=== PATIENT | female | born 1970 ===

== ENCOUNTER 2016-05-19 16:50 | Observation (INO) | payer MEDICARE, BC ==
[2016-05-19 16:50] VITALS: BMI 33.4
[2016-05-19] MEDS ORDERED: Sodium Chloride 0.9% 1,000 ML IV STA (17:14)
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
[2016-05-19 19:15] LABS: URINE BILIRUBIN NEGATIVE (NEGATIVE); URINE BLOOD NEGATIVE (NEGATIVE); URINE GLUCOSE (UA) NEGATIVE (NEGATIVE); URINE KETONE NEGATIVE (NEGATIVE); URINE LEUKOCYTE ESTERASE MODERATE Leu/uL (NEGATIVE); URINE PROTEIN NEGATIVE mg/dL (<30 mg/dL); URINE UROBILINOGEN 0.2 E.U./dL (<1 E.U./dL)
[2016-05-19 19:29] LABS: URINE APPEARANCE CLOUDY (CLEAR); URINE COLOR YELLOW (YELLOW)
[2016-05-19 19:31] LABS: ADD MANUAL DIFF? NO
[2016-05-19 19:32] LABS: URINE RBC 0 - 2 /hpf (0-2); URINE WBC 20 - 25 /hpf (0-6)
[2016-05-19 19:33] LABS: URINE BACTERIA MOD (NEG)
[2016-05-19 19:36] LABS: BASO # 0.02 K/mm3 (0.0-2.0); BASO % 0.3 % (0.0-3.0); EOS % 0.5 % (1.5-5.0); GRAN # 3.97 (1.4-6.5); GRAN % 61.3 % (50.0-68.0); HEMATOCRIT 40.4 % (36.0-48.0); LYMPH # 1.9 (1.2-3.4); LYMPH % 29.7 % (22.0-35.0); MEAN CELL VOLUME 93.1 fL (80.0-105.0); MEAN CORPUSCULAR HEMOGLOBIN 31.3 pg (25.0-35.0); MEAN CORPUSCULAR HGB CONC 33.7 g/dl (31.0-37.0); MEAN PLATELET VOLUME 9.6 fl (7.0-11.0); MONO # 0.5 (0.1-0.6); MONO % 8.2 % (1.0-6.0); PLATELET COUNT 276 10^3/uL (120.0-450.0); RED CELL DISTRIBUTION WIDTH 13.5 % (11.5-14.5); WHITE BLOOD COUNT 6.5 10^3/ul (4.5-11.0)
[2016-05-19 19:46] LABS: ALB/GLOB RATIO 1.1 (1.1-1.8); ALKALINE PHOSPHATASE 47 U/L (38-133); ALT/SGPT 19 U/L (7-56); AST/SGOT 23 U/L (15-39); BILIRUBIN,TOTAL 0.4 mg/dL (0.2-1.3); BLOOD UREA NITROGEN 18 mg/dL (7-21); CARBON DIOXIDE 28 mmol/L (21-33); CHLORIDE 105 mmol/L (98-107); GFR AFRICAN-AMERICAN > 60; GLUCOSE,RANDOM 84 mg/dL (70-110); SODIUM 139 mmol/L (132-148); TOTAL PROTEIN 7.4 g/dL (5.8-8.3)
[2016-05-19 19:59] LABS: TROPONIN I < 0.01 ng/mL
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
[2016-05-19] MEDS ORDERED: Sodium Chloride 0.9% 1,000 ML IV SCH (23:15)
[2016-05-19] MEDS: Sodium Chloride 0.45% 1,000 ML IV SCH (23:34)
[2016-05-20] MEDS: TRIFLUOPERAZINE HCL 5 MG PO SCH ×2 (00:19→22:07)
[2016-05-20 06:25] LABS: ADD MANUAL DIFF? NO
[2016-05-20 06:32] LABS: BASO # 0.02 K/mm3 (0.0-2.0); BASO % 0.4 % (0.0-3.0); EOS % 0.5 % (1.5-5.0); GRAN # 3.29 (1.4-6.5); GRAN % 58.5 % (50.0-68.0); HEMATOCRIT 39.9 % (36.0-48.0); LYMPH # 1.9 (1.2-3.4); LYMPH % 33.3 % (22.0-35.0); MEAN CELL VOLUME 93.2 fL (80.0-105.0); MEAN CORPUSCULAR HEMOGLOBIN 30.6 pg (25.0-35.0); MEAN CORPUSCULAR HGB CONC 32.8 g/dl (31.0-37.0); MONO # 0.4 (0.1-0.6); MONO % 7.3 % (1.0-6.0); PLATELET COUNT 242 10^3/uL (120.0-450.0); WHITE BLOOD COUNT 5.6 10^3/ul (4.5-11.0)
[2016-05-20 06:45] LABS: BLOOD UREA NITROGEN 16 mg/dL (7-21); CALCIUM 8.6 mg/dL (8.4-10.5); CARBON DIOXIDE 24 mmol/L (21-33); CHLORIDE 108 mmol/L (98-107); CHOLESTEROL 165 mg/dL (130-200); GFR AFRICAN-AMERICAN > 60; GLUCOSE,RANDOM 94 mg/dL (70-110); POTASSIUM 4.3 mmol/L (3.6-5.0); SODIUM 139 mmol/L (132-148)
[2016-05-20 07:02] LABS: FREE T4 0.95 ng/dL (0.78-2.19); T4 6.6 ug/dL (5.5-11.0)
[2016-05-20 07:10] LABS: TROPONIN I < 0.01 ng/mL
[2016-05-20 07:15] LABS: THYROID STIMULATING HORMONE 3.02 mIU/mL (0.46-4.68)
--- NOTE | 2016-05-20 07:35 | CT ---
PROCEDURE: CT HEAD WITHOUT CONTRAST. HISTORY: headache COMPARISON: 04/23/2016 TECHNIQUE: Axial computed tomography images were obtained through the head/brain without intravenous contrast. Radiation dose: Total exam DLP = 726 mGy-cm. FINDINGS: HEMORRHAGE: No intracranial hemorrhage. BRAIN: No mass effect or edema. No atrophy or chronic microvascular ischemic changes. VENTRICLES: Unremarkable. No hydrocephalus. CALVARIUM: Unremarkable. PARANASAL SINUSES: Unremarkable as visualized. No significant inflammatory changes. MASTOID AIR CELLS: Unremarkable as visualized. No inflammatory changes. OTHER FINDINGS: None. IMPRESSION: Normal CT of the Head. No interval change
[2016-05-20] MEDS: Pantoprazole 40 mg EC Tab PO SCH (08:13)
--- NOTE | 2016-05-20 08:44 | RAD ---
HISTORY: near syncope COMPARISON: 09/08/2013 FINDINGS: LUNGS: No active pulmonary disease. PLEURA: No significant pleural effusion identified, no pneumothorax apparent. CARDIOVASCULAR: Normal. OSSEOUS STRUCTURES: No significant abnormalities. VISUALIZED UPPER ABDOMEN: Normal. OTHER FINDINGS: EKG leads in place IMPRESSION: No active disease.
--- NOTE | 2016-05-20 09:06 | CARD ---
APPROVED REPORT EKG Measurement Heart [id number] <Conclusion> Normal sinus rhythm Normal ECG
--- NOTE | 2016-05-20 09:52 | CON ---
DATE: 05/20/2016 HISTORY: The patient is a 45-year-old woman who presents with recurrent episodes of "feeling like I' m about the pass out." She denies dizziness, denies shortness of breath, denies loss of consciousness. The patient's past medical history is notable for lupus erythematosus. No previous cardiac history. No chest pain, no shortness of breath. The patient is on disability. SOCIAL HISTORY: Negative smoker. Negative chest pain, negative shortness of breath. A 14-point review of systems was reviewed. No cardiac symptomatology is noted. She denies a seizure disorder. PHYSICAL EXAMINATION: VITAL SIGNS: Stable. No orthostatic changes. Heart rate is in the 70s. NECK: Negative JVD. LUNGS: Without rales. HEART: Reveals S1, S2. EXTREMITIES: Without edema. The hemoglobin is 13.1. LABORATORIES: Troponins are negative x 2. EKG is unremarkable. IMPRESSION: 1. Sensation of near-syncope. 2. No evidence for hemodynamic cause of her syncope. 3. No orthostatic changes. 4. Lupus erythematosus. Given these findings, will obtain an echocardiogram. It is unlikely her symptoms are cardiac related . Paul Cedillo MD cc: [id number] TT: 05/20/2016 09:52:02 Confirmation # [id number] Dictation # [id number] taylor
[2016-05-20] MEDS: Enoxaparin 40 mg Syringe SC SCH (11:41)
[2016-05-20] MEDS: Sodium Chloride 0.45% 1,000 ML IV SCH ×2 (12:03→21:10)
[2016-05-20] MEDS: Apap-Butalbital-Caffeine 325-50-40mg Tab PO PRN ×2 (12:16→19:57)
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
--- NOTE | 2016-05-20 12:45 | US ---
HISTORY: Hx calcified nodule, r/o cause of pre-syncope TECHNIQUE: Sonographic evaluation of the thyroid gland. COMPARISON: 02/25/2009 FINDINGS: RIGHT LOBE: Measures 4.5 x 1.5 x 1.7 cm. Within the midpole a benign-appearing peripherally calcified nodule, 1.2 x 1.1 x 1.1 cm is noted and similar dating back to 2009. Otherwise, normal echotexture and f midpole right low. Nodules: Midpole for peripherally calcified nodule as above LEFT LOBE: Measures 3.8 x 1.2 x 1.5 cm. Normal echotexture and flow. Nodules: None ISTHMUS: Measures 0.3 cm. Normal echotexture and flow. Nodules: None OTHER FINDINGS: None . IMPRESSION: Right midpole peripherally calcified benign-appearing 1 to 1.2 cm nodule -grossly stable since 2009.
--- NOTE | 2016-05-20 13:54 | US ---
PROCEDURE: Bilateral carotid artery duplex ultrasound HISTORY: Carotid stenosis syncope. PHYSICIAN(S): Paul Patrick MD. TECHNIQUE: Duplex sonography and color-flow Doppler were used to evaluate the carotid bifurcations and limited segments of the vertebral arteries bilaterally. FINDINGS: There is mild smooth hypoechoic plaque noted at the carotid bifurcations bilaterally. The peak systolic velocity in the proximal right internal carotid artery is 87 cm/sec. This corresponds to a 0-19 percent proximal right ICA stenosis. Normal systolic velocities are noted in the proximal right external carotid artery. There is antegrade flow in the right vertebral artery. The peak systolic velocity in the proximal left internal carotid artery is 81 cm/sec. This corresponds to a 0-19 percent proximal left ICA stenosis. Normal systolic velocities are noted in the proximal left external carotid artery. There is antegrade flow in the left vertebral artery. IMPRESSION: 1. Bilateral 0-19% proximal ICA stenoses. 2. Antegrade flow in both vertebral arteries.
--- NOTE | 2016-05-20 15:44 | CP.PCM.PN ---
Subjective - Date & Time of Evaluation Date of Evaluation: 05/20/16 Time of Evaluation: 11:00 - Subjective Subjective: PGY-1 Medicine progress note Patient seen and examined at bedside. No acute distress. Nurse report no acute events overnight. Patient states that yesterday she felt lightheadedness, with left arm discomfort. She also reported nausea without emesis. This morning patient states she is feeling better. Overnight patient received Reglan and her nausea improved. She denies fever, chill, dizziness, lightheadedness, n/v/d/c. Patients states that she has a history for headaches and is on multiple medication. Objective - Vital Signs/Intake and Output Vital Signs (last 24 hours): Temp Pulse Resp BP Pulse Ox 98.3 F 78 18 125/76 100 05/20/16 11:52 05/20/16 14:00 05/20/16 11:52 05/20/16 11:52 05/20/16 06:00 Intake and Output: 05/20/16 05/20/16 06:59 18:59 Intake Total 600 480 Balance 600 480 - Medications Medications: Current Medications Acetaminophen/Butalbital/Caffeine (Fioricet) 1 tab PO Q4H PRN PRN Reason: Headache Last Admin: 05/20/16 12:16 Dose: 1 tab Amitriptyline HCl (Elavil) 50 mg PO [facility] Last Admin: 05/20/16 00:24 Dose: 50 mg Enoxaparin Sodium (Lovenox) 40 mg SC DAILY [facility] PRN Reason: Protocol Last Admin: 05/20/16 11:41 Dose: 40 mg Home Med (Home Med) 1 unit PO [facility] Last Admin: 05/20/16 00:19 Dose: Not Given Hydroxychloroquine Sulfate (Plaquenil) 200 mg PO DAILY [facility] Last Admin: 05/20/16 11:41 Dose: 200 mg Hydroxyzine HCl (Atarax) 50 mg PO [facility] Last Admin: 05/20/16 00:25 Dose: 50 mg Sodium Chloride (Sodium Chloride 0.45%) 1,000 mls @ 100 mls/hr IV .Q10H [facility] Last Admin: 05/20/16 12:03 Dose: 100 mls/hr Metoclopramide HCl (Reglan) 5 mg IVP TID PRN PRN Reason: Nausea/Vomiting Last Admin: 05/20/16 11:51 Dose: 5 mg Nitrofurantoin Macrocrystals (Macrobid) 100 mg PO Q12 [facility] Stop: 05/26/16 10:00 Last Admin: 05/20/16 11:41 Dose: 100 mg Pantoprazole Sodium (Protonix Ec Tab) 40 mg PO ACB [facility] Last Admin: 05/20/16 08:13 Dose: 40 mg Phenytoin Sodium (Dilantin) 300 mg PO HS [facility] Last Admin: 05/20/16 00:24 Dose: 300 mg Tramadol HCl (Ultram) 50 mg PO BID PRN PRN Reason: Pain, moderate (4-7) Last Admin: 05/20/16 14:24 Dose: 50 mg - Labs Labs: 05/20/16 05:20 05/20/16 05:20 - Constitutional Appears: Well, No Acute Distress - Head Exam Head Exam: ATRAUMATIC, NORMOCEPHALIC - Eye Exam Eye Exam: EOMI, Normal appearance, PERRL - ENT Exam ENT Exam: Mucous Membranes Moist - Respiratory Exam Respiratory Exam: Clear to Ausculation Bilateral, NORMAL BREATHING PATTERN. absent: Rhonchi, Wheezes, Respiratory Distress - Cardiovascular Exam Cardiovascular Exam: REGULAR RHYTHM. absent: Tachycardia, Murmur - GI/Abdominal Exam GI & Abdominal Exam: Soft, Normal Bowel Sounds. absent: Distended, Firm, Guarding, Tenderness - Extremities Exam Extremities Exam: Normal Inspection. absent: Pedal Edema - Neurological Exam Neurological Exam: Alert, Awake, Oriented x3 - Skin Skin Exam: Dry, Intact, Normal Color, Warm Assessment and Plan - Assessment and Plan (Free Text) Assessment: 45 years old female with a history of lupus, combined migraine/tension/ cluster SINGH, calcified thyroid nodule, Hx of recent fall 2 weeks ago with posterior head impact, presents today with near syncope, nausea with L arm discomfort. Plan: 1. lightheadedness, near syncope - onset s/p fall 2 weeks ago - possibly vasovagal due to decrease PO intake - orthostatic normal - cont 1/2NS@100 - Reglan for nausea - trops negative x2 - carotid u/s shows 19% stenosis - echocardiogram- read pending - cardio consult, Dr. cedillo - negative jaki-hallpike - neuro consult, Dr. Mccarty - BMP normal, A1C is 5.3 2. UTI - positive UA - urine cultures on for gram positive cocci - placed on nitrofurantoin 3. Retractable nausea - diet advanced to regular - Failed zofran - Reglan PRN - IVF 4. L arm discomfort- resolved - along radial nerve distribution with numbness with Hx fall - Likely temporary peripheral nerve irritation from muscle tension due to brief anxiety - cervical spine, Lumbar spine and left elbow x-ray on 04/23/16, showed No fracture - C2 chronic problem requiring spinal injection from pain management - cardio consulted, Dr. Cedillo 5. Hx calcified thyroid nodule - TSH, T4 WNL - Thyroid US showed no change in calcified nodule 6. Hx Lupus - continue Hydroxychloroquine Sulfate 200 mg PO daily - lipid panel is WNL 7. Hx combined migraine/tension/cluster SINGH - continue Elavil 50 mg PO HS, dilantin 300 mg PO HS, Stelazine 5 mg PO HS, and Hydroxyzine 50 mg HS all for headache - Neuro following 8. Hx of chronic lower back pain - continue Ultram 50 mg PO BID PRN 9. Hx GERD - continue Dexilant 60 mg daily 10. Prophylaxis - SCD, lovenox, home dexilant
--- NOTE | 2016-05-20 16:38 | CARD ---
APPROVED REPORT EXAM: Two-dimensional and M-mode echocardiogram with Doppler and color Doppler. INDICATION NEAR SYNCOPE 2D DIMENSIONS Left Atrium (2D)3.7 (1.6-4.0cm)IVSd0.9 (0.7-1.1cm) LVDd4.0 (3.9-5.9cm)PWd1.0 (0.7-1.1cm) LVDs2.9 (2.5-4.0cm)FS (%) 28.5 % LVEF (%)55.6 (>50%) M-Mode DIMENSIONS Aortic Root2.90 (2.2-3.7cm)Aortic Cusp Exc.1.80 (1.5-2.0cm) Aortic Valve AoV Peak Achlgqwy859.0cm/Rony Peak GR.8mmHg Mitral Valve MV E Baxuageq36.1cm/sMV A Wvmrhoqi48.6cm/sE/A ratio0.9 TDI Lateral E' Peak V10.90cm/sMedial E' Peak V11.60cm/sE/Lateral E'5.8 E/Medial E'5.4 Pulmonary Valve PV Peak Kqfdfyve35.0cm/sPV Peak Grad.2mmHg Tricuspid Valve TR Peak Fzabybkj660nc/sRAP [id number] Peak Gr.27mmHg [id number] LEFT VENTRICLE The left ventricle is normal size. There is normal left ventricular wall thickness. The left ventricular function is normal. The left ventricular ejection fraction is within the normal range. There is normal LV segmental wall motion. Transmitral Doppler flow pattern is Grade I-abnormal relaxation pattern. RIGHT VENTRICLE The right ventricle is normal size. There is normal right ventricular wall thickness. The right ventricular systolic function is normal. ATRIA The left atrium size is normal. The right atrium size is normal. AORTIC VALVE The aortic valve is normal in structure. No aortic regurgitation is present. MITRAL VALVE The mitral valve is normal in structure. There is no mitral valve regurgitation noted. TRICUSPID VALVE There is mild pulmonary hypertension. GREAT VESSELS The aortic root is normal in size. PERICARDIAL EFFUSION There is no pericardial effusion. <Conclusion> The left ventricle is normal size. There is normal left ventricular wall thickness. The left ventricular function is normal. The left ventricular ejection fraction is within the normal range. There is normal LV segmental wall motion. Transmitral Doppler flow pattern is Grade I-abnormal relaxation pattern. There is mild pulmonary hypertension.
--- NOTE | 2016-05-20 21:02 | CP.PCM.PN ---
Subjective - Date & Time of Evaluation Date of Evaluation: 05/20/16 Time of Evaluation: 20:59 - Subjective Subjective: Night call: Headache Pt developed SINGH after carotid u/s. SINGH is moderate, R > L parietal area. improves after vomiting x 1. denies vision change. denies any focal neural deficit. VSS Pt has a hx of chronic headache x 30 years managed by neurologist. On schedule Elavil 50 mg PO HS, Phenytoin Sodium Extended [Dilantin] 300 mg PO HS, Trifluoperazine HCl [Stelazine] 5 mg PO HS, and Hydroxyzine 50 mg HS all for headache, Rx by neurologist. Objective - Vital Signs/Intake and Output Vital Signs (last 24 hours): Temp Pulse Resp BP Pulse Ox 98.8 F 72 19 100/68 100 05/20/16 18:00 05/20/16 18:00 05/20/16 18:00 05/20/16 18:00 05/20/16 06:00 Intake and Output: 05/20/16 05/21/16 18:59 06:59 Intake Total 480 Balance 480 - Medications Medications: Current Medications Acetaminophen/Butalbital/Caffeine (Fioricet) 1 tab PO Q4H PRN PRN Reason: Headache Last Admin: 05/20/16 19:57 Dose: 1 tab Amitriptyline HCl (Elavil) 50 mg PO HS [facility] Last Admin: 05/20/16 00:24 Dose: 50 mg Enoxaparin Sodium (Lovenox) 40 mg SC DAILY [facility] PRN Reason: Protocol Last Admin: 05/20/16 11:41 Dose: 40 mg Home Med (Home Med) 1 unit PO HS [facility] Last Admin: 05/20/16 00:19 Dose: Not Given Hydroxychloroquine Sulfate (Plaquenil) 200 mg PO DAILY [facility] Last Admin: 05/20/16 11:41 Dose: 200 mg Hydroxyzine HCl (Atarax) 50 mg PO HS [facility] Last Admin: 05/20/16 00:25 Dose: 50 mg Sodium Chloride (Sodium Chloride 0.45%) 1,000 mls @ 100 mls/hr IV .Q10H [facility] Last Admin: 05/20/16 12:03 Dose: 100 mls/hr Metoclopramide HCl (Reglan) 5 mg IVP TID PRN PRN Reason: Nausea/Vomiting Last Admin: 05/20/16 17:58 Dose: 5 mg Nitrofurantoin Macrocrystals (Macrobid) 100 mg PO Q12 [facility] Stop: 05/26/16 10:00 Last Admin: 05/20/16 11:41 Dose: 100 mg Pantoprazole Sodium (Protonix Ec Tab) 40 mg PO ACB [facility] Last Admin: 05/20/16 08:13 Dose: 40 mg Phenytoin Sodium (Dilantin) 300 mg PO HS [facility] Last Admin: 05/20/16 00:24 Dose: 300 mg Tramadol HCl (Ultram) 50 mg PO BID PRN PRN Reason: Pain, moderate (4-7) Last Admin: 05/20/16 14:24 Dose: 50 mg - Labs Labs: 05/20/16 05:20 05/20/16 05:20 - Constitutional Appears: No Acute Distress - Head Exam Head Exam: ATRAUMATIC, NORMOCEPHALIC - Eye Exam Eye Exam: EOMI, Normal appearance, PERRL Pupil Exam: PERRL - ENT Exam ENT Exam: Mucous Membranes Moist, Normal Exam - Neck Exam Neck Exam: Normal Inspection, Tenderness (base of neck, b/l shoulder, chronic). absent: Meningismus - Respiratory Exam Respiratory Exam: Clear to Ausculation Bilateral, NORMAL BREATHING PATTERN - Neurological Exam Neurological Exam: Alert, Awake, CN II-XII Intact, Oriented x3. absent: Motor Sensory Deficit - Psychiatric Exam Psychiatric exam: Normal Mood - Skin Skin Exam: Dry, Warm Assessment and Plan - Assessment and Plan (Free Text) Plan: Chronic Headache, aggravated after carotid u/s, most likely tension in nature - 10pm Elavil 50 mg PO HS, Phenytoin Sodium Extended [Dilantin] 300 mg PO HS, Trifluoperazine HCl [Stelazine] 5 mg PO HS, and Hydroxyzine 50 mg HS all for headache - s/p reglan and fioricet x 1 - Hot +/- cold compress for tight muscles around neck. <20 mins per session. - Dim light. - If one sided SINGH with eye pain, 1L NC - No focal neural deficit
[2016-05-21] MEDS: Sodium Chloride 0.45% 1,000 ML IV SCH (05:46)
[2016-05-21 06:51] LABS: ADD MANUAL DIFF? NO
[2016-05-21 07:09] LABS: BASO # 0.01 K/mm3 (0.0-2.0); BASO % 0.2 % (0.0-3.0); EOS # 0.1 (0.0-0.7); EOS % 1.1 % (1.5-5.0); GRAN # 2.55 (1.4-6.5); GRAN % 54.4 % (50.0-68.0); HEMATOCRIT 39.3 % (36.0-48.0); LYMPH # 1.7 (1.2-3.4); LYMPH % 36.2 % (22.0-35.0); MEAN CELL VOLUME 93.1 fL (80.0-105.0); MEAN CORPUSCULAR HEMOGLOBIN 30.6 pg (25.0-35.0); MEAN CORPUSCULAR HGB CONC 32.8 g/dl (31.0-37.0); MEAN PLATELET VOLUME 9.4 fl (7.0-11.0); MONO # 0.4 (0.1-0.6); MONO % 8.1 % (1.0-6.0); PLATELET COUNT 252 10^3/uL (120.0-450.0); RED CELL DISTRIBUTION WIDTH 13.5 % (11.5-14.5); WHITE BLOOD COUNT 4.7 10^3/ul (4.5-11.0)
[2016-05-21 07:19] LABS: BLOOD UREA NITROGEN 9 mg/dL (7-21); CALCIUM 8.9 mg/dL (8.4-10.5); CARBON DIOXIDE 27 mmol/L (21-33); CHLORIDE 106 mmol/L (98-107); GFR AFRICAN-AMERICAN > 60; GLUCOSE,RANDOM 88 mg/dL (70-110); POTASSIUM 3.9 mmol/L (3.6-5.0); SODIUM 139 mmol/L (132-148)
[2016-05-21] MEDS: Pantoprazole 40 mg EC Tab PO SCH (08:03)
[2016-05-21] MEDS ORDERED: Valproate 500 MG in Sodium Chloride 0.9% 100 ML IVPB ONE (08:26)
[2016-05-21] MEDS ORDERED: methylPREDNISolone 500 MG in Sodium Chloride 0.9% 100 ML IVPB ONE (08:30)
[2016-05-21] MEDS ORDERED: DiphenhydrAMINE 50 mg/ml Inj IVP ONE (08:30)
[2016-05-21] MEDS: Enoxaparin 40 mg Syringe SC SCH (09:25)
--- NOTE | 2016-05-21 11:51 | PN ---
DATE: 05/21/2016 The patient is without symptoms. PHYSICAL EXAMINATION: VITAL SIGNS: Blood pressure 102/69, heart rate is in the 70s. NECK: Negative JVD. LUNGS: Without rales. HEART: Revealed S1, S2. EXTREMITIES: Without edema. LABORATORIES: Reveal troponins that are negative x 2. The hemoglobin is 12.6. Echocardiogram is un remarkable. EKG is unremarkable. eyeglass lens cutter is unremarkable. PLAN: Given these findings, there is no cardiac basis for her "near syncopal episode." No further cardiac workup is indicated at this time. We will discontinue telemetry today. Paul Cedillo MD cc: [id number] TT: 05/21/2016 11:50:37 Confirmation # [id number] Dictation # [id number]
--- NOTE | 2016-05-21 13:18 | CP.PCM.DIS ---
Provider - Provider Date of Admission: 05/19/16 21:02 Attending physician: Camilo Ivey MD Primary care physician: Dominga Pandey MD Time Spent in preparation of Discharge (in minutes): 45 Hospital Course - Lab Results Lab Results: Most Recent Lab Values WBC 4.7 10^3/ul (4.5-11.0) 05/21/16 06:30 RBC 4.22 10^6/uL (3.5-6.1) 05/21/16 06:30 Hgb 12.9 gm/dL (12.0-16.0) 05/21/16 06:30 Hct 39.3 % (36.0-48.0) 05/21/16 06:30 MCV 93.1 fL (80.0-105.0) 05/21/16 06:30 MCH 30.6 pg (25.0-35.0) 05/21/16 06:30 MCHC 32.8 g/dl (31.0-37.0) 05/21/16 06:30 RDW 13.5 % (11.5-14.5) 05/21/16 06:30 Plt Count 252 10^3/uL (120.0-450.0) 05/21/16 06:30 MPV 9.4 fl (7.0-11.0) 05/21/16 06:30 Gran % 54.4 % (50.0-68.0) 05/21/16 06:30 Lymph % (Auto) 36.2 % (22.0-35.0) H 05/21/16 06:30 Valencia % (Auto) 8.1 % (1.0-6.0) H 05/21/16 06:30 Eos % (Auto) 1.1 % (1.5-5.0) L 05/21/16 06:30 Baso % (Auto) 0.2 % (0.0-3.0) 05/21/16 06:30 Gran # 2.55 (1.4-6.5) 05/21/16 06:30 Lymph # 1.7 (1.2-3.4) 05/21/16 06:30 Valencia # 0.4 (0.1-0.6) 05/21/16 06:30 Eos # 0.1 (0.0-0.7) 05/21/16 06:30 Baso # 0.01 K/mm3 (0.0-2.0) 05/21/16 06:30 Sodium 139 mmol/L (132-148) 05/21/16 06:30 Potassium 3.9 mmol/L (3.6-5.0) 05/21/16 06:30 Chloride 106 mmol/L (98-107) 05/21/16 06:30 Carbon Dioxide 27 mmol/L (21-33) 05/21/16 06:30 Anion Gap 10 (10-20) 05/21/16 06:30 BUN 9 mg/dL (7-21) 05/21/16 06:30 Creatinine 0.7 mg/dL (0.5-1.4) 05/21/16 06:30 Est GFR ( Amer) > 60 05/21/16 06:30 Est GFR (Non-Af Amer) > 60 05/21/16 06:30 Random Glucose 88 mg/dL (70-110) 05/21/16 06:30 Hemoglobin A1c 5.3 % (4.2-6.5) 05/20/16 05:20 Calcium 8.9 mg/dL (8.4-10.5) 05/21/16 06:30 Total Bilirubin 0.4 mg/dL (0.2-1.3) 05/19/16 19:17 AST 23 U/L (15-39) 05/19/16 19:17 ALT 19 U/L (7-56) 05/19/16 19:17 Alkaline Phosphatase 47 U/L (38-133) 05/19/16 19:17 Lactate Dehydrogenase 580 U/L (333-699) 05/20/16 05:20 Total Creatine Kinase 25 U/L (35-230) L 05/20/16 05:20 Troponin I < 0.01 ng/mL 05/20/16 05:20 Total Protein 7.4 g/dL (5.8-8.3) 05/19/16 19:17 Albumin 3.9 g/dL (3.0-4.8) 05/19/16 19:17 Globulin 3.5 gm/dL 05/19/16 19:17 Albumin/Globulin Ratio 1.1 (1.1-1.8) 05/19/16 19:17 Triglycerides 44 mg/dL (35-160) 05/20/16 05:20 Cholesterol 165 mg/dL (130-200) 05/20/16 05:20 LDL Cholesterol Direct 92 mg/dL (0-129) 05/20/16 05:20 HDL Cholesterol 58 mg/dL (29-60) 05/20/16 05:20 Free T4 0.95 ng/dL (0.78-2.19) 05/20/16 05:20 Thyroxine (T4) 6.6 ug/dL (5.5-11.0) 05/20/16 05:20 TSH 3rd Generation 3.02 mIU/mL (0.46-4.68) 05/20/16 05:20 Urine Color Yellow (YELLOW) 05/19/16 18:57 Urine Appearance Cloudy (CLEAR) 05/19/16 18:57 Urine pH 7.0 (4.7-8.0) 05/19/16 18:57 Ur Specific Hamilton 1.020 (1.005-1.035) 05/19/16 18:57 Urine Protein Negative mg/dL (<30 mg/dL) 05/19/16 18:57 Urine Glucose (UA) Negative mg/dL (NEGATIVE) 05/19/16 18:57 Urine Ketones Negative mg/dL (NEGATIVE) 05/19/16 18:57 Urine Blood Negative (NEGATIVE) 05/19/16 18:57 Urine Nitrate Negative (NEGATIVE) 05/19/16 18:57 Urine Bilirubin Negative (NEGATIVE) 05/19/16 18:57 Urine Urobilinogen 0.2 E.U./dL (<1 E.U./dL) 05/19/16 18:57 Ur Leukocyte Esterase Moderate Ashwini/uL (NEGATIVE) H 05/19/16 18:57 Urine RBC 0 - 2 /hpf (0-2) 05/19/16 18:57 Urine WBC 20 - 25 /hpf (0-6) 05/19/16 18:57 Ur Epithelial Cells 3 - 4 /hpf (0-5) 05/19/16 18:57 Urine Bacteria Mod (NEG) 05/19/16 18:57 Urine HCG, Qual Negative (NEGATIVE) 05/19/16 18:57 Phenytoin < 3 ug/mL (10-20) L 05/19/16 19:17 Discharge Exam - Head Exam Head Exam: ATRAUMATIC, NORMOCEPHALIC - Eye Exam Eye Exam: EOMI, Normal appearance - ENT Exam ENT Exam: Mucous Membranes Moist - Respiratory Exam Respiratory Exam: Clear to PA & Lateral, NORMAL BREATHING PATTERN, UNREMARKABLE. absent: Decreased Breath Sounds, Wheezes, Respiratory Distress - Cardiovascular Exam Cardiovascular Exam: REGULAR RHYTHM. absent: Tachycardia, Diastolic murmur, Systolic Murmur - GI/Abdominal Exam GI & Abdominal Exam: Normal Bowel Sounds, Soft, Unremarkable. absent: Distended , Firm, Guarding, Tenderness - Extremities Exam Extremities exam: normal inspection - Neurological Exam Neurological exam: Alert, Oriented x3 - Skin Skin Exam: Dry, Intact, Normal Color, Warm Discharge Plan - Discharge Medications Prescriptions: Nitrofurantoin Macrocrystals [Macrobid] 100 mg PO Q12 #14 cap Metoclopramide [Reglan] 5 mg PO DAILY #5 tab - Follow Up Plan Condition: GOOD Disposition: HOME/ ROUTINE Instructions: Syncope (DC) Additional Instructions: Discharge instructions: - follow up with primary care physician, Dr. Ivey in 5 days. - follow up with Dr. Mccarty in 1-2 weeks. - if new symptoms occur call PMD or go to nearest emergency room New medication: macrobid 100mg q12 x 7 days for urinary tract infection Reglan 5mg resume all home medications discharge diagnose: near syncope UTI Referrals: Dominga Pandey MD [Primary Care Provider] - Camilo Ivey MD [Staff Provider] - Luis Mccarty MD [Staff Provider] -
[2016-05-21 13:40] VITALS: BP 106/69; PULSE 79; RESP 21; TEMP 97.9; O2SAT 99
== END 2016-05-21 14:13 | disposition home or self-care (01) ==
LOC: ED 16:50 → ERH 21:02 → 2RNO 05-20 00:10
PROVIDERS: ADMIT Internal Medicine; ATTEND Internal Medicine
DX: R55 Syncope and collapse (principal); R51 Headache; R42 Dizziness and giddiness; M79.602 Pain in left arm; M32.9 Systemic lupus erythematosus, unspecified; G43.909 Migraine, unspecified, not intractable, without status migrainosus; Z86.61 Personal history of infections of the central nervous system; K21.9 Gastro-esophageal reflux disease without esophagitis; F32.9 Major depressive disorder, single episode, unspecified; M06.9 Rheumatoid arthritis, unspecified; N18.9 Chronic kidney disease, unspecified; Z79.899 Other long term (current) drug therapy; Z91.81 History of falling
CPT/HCPCS: 36415; 70450; 71010; 76536; 80048; 80053; 80061; 80185; 81001; 82550; 83036; 83615; 84439; 84443; 84484; 84703; 85025; 87086; 87181; 93005; 93306; 93880; 96360; 96374; 97116; 97161; 99285; G0378; G8978; G8979; G8980; J1200; J1650; J2405; J2765; J2930; J7030; J7040

== ENCOUNTER 2016-12-17 15:00 | Emergency (ER) | payer MEDICARE, BC ==
[2016-12-17 15:01] VITALS: BMI 33.4
--- NOTE | 2016-12-17 16:06 | ED PDOC ---
Arrival/HPI - General Chief Complaint: Dental Pain Time Seen by Provider: 12/17/16 15:08 Historian: Patient - History of Present Illness Narrative History of Present Illness (Text): 12/17/16 15:56 This 46 yo female with pmh migraines, lupus, presents to this ED c/o right anterior upper tooth pain x 2 days. Patient stated she was evaluated by her dentist this morning, who examined her and ordered x-rays. Patient showed me a note from her dentist who stated no dental disease was found. Patient stated pain radiates to her right face and forehead area. Patient denies ear pain, sob, cp, sore throat, recent travel, sick contact, dizziness, or abnormal gait. Denies SINGH. Patient noted she has been taking medication for Lupus. Patient stated patient called her [employer] yesterday, who recommended her Levaquin 750 mg. She stated she took ABX yesterday and today, and that she has enough ABX for over 10 days. Time/Duration: Other (2 days) Quality: Aching Context: Home Past Medical History - Provider Review Nursing Documentation Reviewed: Yes - Infectious Disease Hx of Infectious Diseases: None - Tetanus Immunization Tetanus Immunization: Unknown - Past Medical History Past Medical History: No Previous - Cardiac Hx Cardiac Disorders: No - Pulmonary Hx Respiratory Disorders: No - Neurological Hx Neurological Disorder: Yes Hx Migraine: Yes - HEENT Hx HEENT Disorder: No (WEARS RX GLASSES) - Renal Hx Renal Disorder: Yes Hx Kidney Stones: Yes - Endocrine/Metabolic Hx Endocrine Disorders: Yes Hx Systemic Lupus Erythematosus: Yes - Hematological/Oncological Hx Blood Disorders: No Hx Blood Transfusions: No Hx Blood Transfusion Reaction: No - Integumentary Hx Dermatological Disorder: No - Musculoskeletal/Rheumatological Hx Arthritis: No Hx Rheumatoid Arthritis: Yes - Gastrointestinal Hx Gastrointestinal Disorders: Yes Hx Gastroesophageal Reflux: Yes - Genitourinary/Gynecological Hx Genitourinary Disorders: No - Psychiatric Hx Psychophysiologic Disorder: Yes Hx Anxiety: Yes Hx Depression: Yes Hx Emotional Abuse: No Hx Physical Abuse: No Hx Substance Use: No - Past Surgical History Past Surgical History: No Previous - Surgical History Hx Tonsillectomy: Yes Other/Comment: left foot - Anesthesia Hx Anesthesia Reactions: No Hx Malignant Hyperthermia: No - Suicidal Assessment Feels Threatened In Home Enviroment: No Family/Social History - Physician Review Nursing Documentation Reviewed: Yes Family/Social History: Other (non contributory) Smoking Status: Never Smoked Hx Alcohol Use: No Hx Substance Use: No Hx Substance Use Treatment: No Allergies/Home Meds Allergies/Adverse Reactions: Allergies acetaminophen [From Percocet] Allergy (Verified 12/17/16 15:34) VOMITING hydromorphone Allergy (Verified 05/19/16 16:59) VOMITING low bp oxycodone [From Percocet] Allergy (Verified 12/17/16 15:34) VOMITING Penicillins Allergy (Verified 05/19/16 16:59) RASH shellfish derived Allergy (Verified 05/19/16 16:59) ANAPHYLAXIS TYLENOL 3 Allergy (Mild, Uncoded 05/19/16 16:59) NAUSEA low bp Home Medications: Home Meds Medication Instructions Recorded Confirmed Elavil 50 mg PO HS 11/16/11 12/17/16 Dexlansoprazole [Dexilant] 60 mg PO DAILY 05/19/16 12/17/16 Dexlansoprazole [Dexilant] 60 mg PO DAILY 12/17/16 12/17/16 Gabapentin [Neurontin] 400 mg PO HS 12/17/16 12/17/16 Hydroxychloroquine Sulfate 200 mg PO DAILY 12/17/16 12/17/16 [Plaquenil] Review of Systems - Review of Systems Constitutional: Normal. absent: Fatigue, Weight Change, Fevers, Night Sweats Eyes: Normal. absent: Vision Changes, Photophobia, Eye Pain ENT: Other (see HPI). absent: TMJ Pain, Sore Throat, Rhinorrhea, Sinus Congestion Respiratory: Normal. absent: SOB, Cough, Sputum, Wheezing Cardiovascular: Normal. absent: Chest Pain, Palpitations Gastrointestinal: Normal. absent: Abdominal Pain, Nausea, Vomiting Genitourinary Female: Normal. absent: Dysuria, Frequency, Hematuria Musculoskeletal: Normal. absent: Back Pain, Neck Pain Skin: Normal. absent: Rash Neurological: Normal. absent: Headache, Dizziness, Focal Weakness, Gait Changes , Speech Changes, Facial Droop, Disequilibrium, Seizure Endocrine: Normal Hemo/Lymphatic: Normal Psychiatric: Normal. absent: Anxiety, Depression, Suicidal Ideation Physical Exam Vital Signs Temp Pulse Resp BP Pulse Ox 12/17/16 15:31 99.8 F H 98 H 18 126/81 100 Temperature: Afebrile Blood Pressure: Normal Pulse: Regular Respiratory Rate: Normal Appearance: Positive for: Well-Appearing, Non-Toxic, Comfortable Pain Distress: None Mental Status: Positive for: Alert and Oriented X 3 - Systems Exam Head: Present: Atraumatic, Normocephalic, Other (mild tenderness on right forehead, and right maxillary area. No facial swelling, erythema, or skin lesion) Pupils: Present: PERRL Extroacular Muscles: Present: EOMI. No: Entrapment Conjunctiva: Present: Normal. No: Injected Ears: Present: Normal, NORMAL TM, Normal Canal. No: Erythema, TM Bulging, Fluid , TM Perf Mouth: Present: Moist Mucous Membranes, Normal Lips, Normal Tounge, Normal Teeth. No: Drooling, Trismus Pharnyx: Present: Normal. No: ERYTHEMA, EXUDATE, TONSILS ENLARGED Nose (External): Present: Atraumatic Nose (Internal): Present: Normal Inspection Neck: Present: Normal Range of Motion, Lymphadenopathy (patient has a past history of enlarged righ cervical lymph node, which has been worked out in the past.). No: Meningeal Signs, MIDLINE TENDERNESS, Paraspinal Tenderness Respiratory/Chest: Present: Clear to Auscultation Back: Present: Normal Inspection Upper Extremity: Present: Normal Inspection, Normal ROM Lower Extremity: Present: Normal Inspection, Normal ROM Neurological: Present: GCS=15, CN II-XII Intact, Speech Normal, Motor Func Grossly Intact, Normal Sensory Function, Normal Cerebellar Funct, Gait Normal, Memory Normal Skin: Present: Warm, Dry, Normal Color. No: Rashes Psychiatric: Present: Alert, Oriented x 3, Normal Insight, Normal Concentration Medical Decision Making ED Course and Treatment: 12/17/16 19:11 On reevaluation the patient feels better and is in no acute distress. I have discussed the results and plan with the patient, who expresses understanding. Patient given the opportunity to ask question, all questions were answered and there is agreement with the plan to discharge the patient home with prescription for Macrobid. Patient was recommended to continue with Levaquin as instructed by her doctor. Patient is stable for discharge. Patient was instructed to follow up with physician/clinic in 1-2 days or return if symptoms persist/worsen or new concerning symptoms arise. Patient refused Naproxen prescription since she has Naproxen and Percocet at home. Re-evaluation Time: 19:13 Reassessment Condition: Re-examined, Improved - Lab Interpretations Lab Results: 12/17/16 16:50 12/17/16 16:50 Lab Results 12/17/16 16:50: Sodium 143, Potassium 3.8, Chloride 106, Carbon Dioxide 24, Anion Gap 17, BUN 15, Creatinine 0.8, Est GFR ( Amer) > 60, Est GFR (Non- Af Amer) > 60, Random Glucose 88, Calcium 9.7, Total Bilirubin 0.6, AST 32, ALT 34, Alkaline Phosphatase 67, Total Protein 8.0, Albumin 4.6, Globulin 3.4, Albumin/Globulin Ratio 1.4 12/17/16 16:50: WBC 7.3 D, RBC 4.62, Hgb 13.8, Hct 41.9, MCV 90.7, MCH 29.9, MCHC 32.9, RDW 13.1, Plt Count 332, MPV 10.0, Gran % 74.0 H, Lymph % (Auto) 18.6 L, [place] % (Auto) 6.5 H, Eos % (Auto) 0.8 L, Baso % (Auto) 0.1, Gran # 5.38 , Lymph # 1.4, [place] # 0.5, Eos # 0.1, Baso # 0.01, ESR 11 12/17/16 16:36: Urine Color Yellow, Urine Appearance Sl cloudy, Urine pH 6.0, Ur Specific [place] 1.025, Urine Protein Negative, Urine Glucose (UA) Negative, Urine Ketones Negative, Urine Blood Negative, Urine Nitrate Negative, Urine Bilirubin Negative, Urine Urobilinogen 0.2, Ur Leukocyte Esterase Trace H, Urine RBC 0 - 2, Urine WBC 2 - 5, Ur Epithelial Cells 1 - 3, Urine Bacteria Few , Urine HCG, Qual Negative I have reviewed the lab results: Yes Interpretation: No clinic. lab abnormalty (except for subtle UTI) - RAD Interpretation Narrative RAD Interpretations (Text): 12/17/16 18:55 Accession No. 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 Coronal and sagittal reformats were generated. Radiation dose: Total exam DLP = 2081.33 mGy-cm. This CT exam was performed using one or more of the following dose reduction techniques: Automated exposure control, adjustment of the mA and/or kV according to patient size, and/or use of iterative reconstruction technique. FINDINGS: FRONTAL SINUSES: Clear. ETHMOID SINUSES: Clear. SPHENOID SINUSES: Clear. MAXILLARY SINUSES: There is mild mucosal thickening seen at the mid and lower portion of the right maxillary sinus without evidence of air-fluid level. The left maxillary sinus is clear. SINUS DRAINAGE: Osteomeatal complexes, frontal recesses and sphenoethmoid recesses clear. NASAL SEPTUM: No significant deviation. No destructive lesion. MASS: None. SKULL BASE: Unremarkable. TEMPORAL BONES: Middle ears and mastoid grossly unremarkable. OTHER FINDINGS: None. IMPRESSION: Mild mucosal thickening at the inferior aspect of the right maxillary sinus without evidence of air-fluid level. Otherwise the sinuses are clear. Radiology Orders: 12/17/16 16:18 SINUSES W/O CONTRAST [CT] Stat - Medication Orders Current Medication Orders: Discontinued Medications Sodium Chloride (Sodium Chloride 0.9%) 1,000 mls @ 999 mls/hr IV .Q1H1M STA Stop: 12/17/16 17:19 Last Admin: 12/17/16 16:59 Dose: 999 mls/hr eMAR Start Stop Document 12/17/16 16:59 EQ (Rec: 12/17/16 16:59 EQ [facility] [id number] Intravenous Solution Start Date 12/17/16 Start Time 16:59 Ketorolac Tromethamine (Toradol) 30 mg IVP STAT STA Stop: 12/17/16 16:18 Last Admin: 12/17/16 16:59 Dose: 30 mg MAR Pain Assessment Document 12/17/16 16:59 EQ (Rec: 12/17/16 16:59 EQ [facility] [id number] Pain Reassessment Is this a pain reassessment? No Sleep Is patient sleeping during reassessment? No Presence of Pain Presence of Pain Yes IVP Administration Document 12/17/16 16:59 EQ (Rec: 12/17/16 16:59 EQ [facility] [id number] Charges for Administration # of IVP Administrations 1 Disposition/Present on Arrival - Present on Arrival Any Indicators Present on Arrival: No History of DVT/PE: No History of Uncontrolled Diabetes: No Urinary Catheter: No History of Decub. Ulcer: No History Surgical Site Infection Following: None - Disposition Have Diagnosis and Disposition been Completed?: Yes Diagnosis: Right maxillary sinusitis, Cystitis Disposition: HOME/ ROUTINE Disposition Time: 19:14 Patient Plan: Discharge Patient Problems: Current Active Problems Problem Status Onset Cystitis Acute Right maxillary sinusitis Acute Condition: GOOD Discharge Instructions (ExitCare): Sinusitis (ED), Urinary Tract Infection in Women (ED) Additional Instructions: Call private ENT doctor for follow up visit in 1 day. Take home Naproxen for pain with food. Also take Home Percocet with food as instructed by Dr. Jonny Wagoner. Return to emergency if symptoms worsen. Prescriptions: Nitrofurantoin Macrocrystals [Macrobid] 100 mg PO BID #14 cap Referrals: Cral Pandey MD [Primary Care Provider] - Follow up with primary Clint Banegas DO [Staff Provider] - Follow up with primary Forms: [employer] ([place]an), WORK NOTE
[2016-12-17 16:09] VITALS: TEMP 99.8
[2016-12-17] MEDS ORDERED: Sodium Chloride 0.9% 1,000 ML IV STA (16:19)
[2016-12-17 16:41] LABS: URINE BILIRUBIN NEGATIVE (NEGATIVE); URINE BLOOD NEGATIVE (NEGATIVE); URINE GLUCOSE (UA) NEGATIVE (NEGATIVE); URINE KETONE NEGATIVE (NEGATIVE); URINE LEUKOCYTE ESTERASE TRACE Leu/uL (NEGATIVE); URINE PROTEIN NEGATIVE mg/dL (<30 mg/dL); URINE UROBILINOGEN 0.2 E.U./dL (<1 E.U./dL)
[2016-12-17 16:42] LABS: URINE COLOR YELLOW (YELLOW)
[2016-12-17 16:54] LABS: URINE APPEARANCE SL CLOUDY (CLEAR); URINE BACTERIA FEW (NEG); URINE RBC 0 - 2 /hpf (0-2)
[2016-12-17 17:14] LABS: BASO # 0.01 K/mm3 (0.0-2.0); BASO % 0.1 % (0.0-3.0); EOS # 0.1 (0.0-0.7); EOS % 0.8 % (1.5-5.0); GRAN # 5.38 (1.4-6.5); HEMATOCRIT 41.9 % (36.0-48.0); LYMPH # 1.4 (1.2-3.4); LYMPH % 18.6 % (22.0-35.0); MEAN CELL VOLUME 90.7 fl (80.0-105.0); MEAN CORPUSCULAR HEMOGLOBIN 29.9 pg (25.0-35.0); MEAN CORPUSCULAR HGB CONC 32.9 g/dl (31.0-37.0); MONO # 0.5 (0.1-0.6); MONO % 6.5 % (1.0-6.0); RED CELL DISTRIBUTION WIDTH 13.1 % (11.5-14.5); WHITE BLOOD COUNT 7.3 10^3/ul (4.5-11.0)
[2016-12-17 17:20] LABS: ALB/GLOB RATIO 1.4 (1.1-1.8); ALKALINE PHOSPHATASE 67 U/L (38-126); ALT/SGPT 34 U/L (7-56); AST/SGOT 32 U/L (14-36); BILIRUBIN,TOTAL 0.6 mg/dL (0.2-1.3); BLOOD UREA NITROGEN 15 mg/dL (7-21); CALCIUM 9.7 mg/dL (8.4-10.5); CARBON DIOXIDE 24 mmol/L (21-33); CHLORIDE 106 mmol/L (98-107); GFR AFRICAN-AMERICAN > 60; GLUCOSE,RANDOM 88 mg/dL (70-110); POTASSIUM 3.8 mmol/L (3.6-5.0); SODIUM 143 mmol/L (132-148)
--- NOTE | 2016-12-17 18:49 | CT ---
PROCEDURE: CT SINUSES WITHOUT CONTRAST HISTORY: right maxillary sinuses tenderness COMPARISON: None TECHNIQUE: Contiguous axial CT images of the paranasal sinuses were obtained. Coronal and sagittal reformats were generated. Radiation dose: Total exam DLP = 2081.33 mGy-cm. This CT exam was performed using one or more of the following dose reduction techniques: Automated exposure control, adjustment of the mA and/or kV according to patient size, and/or use of iterative reconstruction technique. FINDINGS: FRONTAL SINUSES: Clear. ETHMOID SINUSES: Clear. SPHENOID SINUSES: Clear. MAXILLARY SINUSES: There is mild mucosal thickening seen at the mid and lower portion of the right maxillary sinus without evidence of air-fluid level. The left maxillary sinus is clear. SINUS DRAINAGE: Osteomeatal complexes, frontal recesses and sphenoethmoid recesses clear. NASAL SEPTUM: No significant deviation. No destructive lesion. MASS: None. SKULL BASE: Unremarkable. TEMPORAL BONES: Middle ears and mastoid grossly unremarkable. OTHER FINDINGS: None. IMPRESSION: Mild mucosal thickening at the inferior aspect of the right maxillary sinus without evidence of air-fluid level. Otherwise the sinuses are clear.
[2016-12-17 19:44] VITALS: BP 108/66; PULSE 90; RESP 20
[2016-12-17 19:56] VITALS: O2SAT 98
== END 2016-12-17 19:55 | disposition home or self-care (01) ==
LOC: ED 15:00
DX: J32.0 Chronic maxillary sinusitis (principal); N30.90 Cystitis, unspecified without hematuria
CPT/HCPCS: 70486; 80053; 81001; 81025; 84703; 85025; 85651; 86140; 87086; 96374; 99282; J1885; J7040